=== PATIENT | female | born 1975 | race Native Hawaiian/Other Pacific Islander ===

== ENCOUNTER 2019-02-12 23:54 | Inpatient (IN) | payer BC, OTHER ==
[~2019-02-12] VITALS: Ht 154.9 cm; Wt 68.2 kg
[2019-02-13 00:48] LABS: CLARITY,URINE SLIGHTLY CLOUDY (Clear); COLOR,URINE STRAW (Yellow); GLUCOSE, URINE >=1000 mg/dl (Neg); KETONES,URINE TRACE mg/dl (Neg); LEUKOCYTE ESTERASE ,URINE NEGATIVE (Neg); NITRITES, URINE NEGATIVE (Neg); OCCULT BLOOD,URINE NEGATIVE (Neg); PH,URINE 6.5 (4.8-8.0); PROTEIN,URINE 30 mg/dl (Neg); UROBILINOGEN,URINE 0.2 E.U/dL (0.2-1.0)
[2019-02-13 00:51] LABS: UA COLLECTION TYPE CLN CATCH MIDSTREAM
[2019-02-13 01:00] LABS: URINE AMPHETAMINE SCREEN NEGATIVE (Neg); URINE BARBITUATE SCREEN NEGATIVE (Neg); URINE BENZODIAZEPINES SCREEN NEGATIVE (Neg); URINE CANNABINOID SCREEN NEGATIVE (Neg); URINE COCAINE SCREEN NEGATIVE (Neg); URINE METHADONE SCREEN NEGATIVE (Neg); URINE OPIATE SCREEN NEGATIVE (Neg); URINE PHENCYCLIDINE SCREEN NEGATIVE (Neg)
[2019-02-13 01:09] LABS: SQUAMOUS EPITHELIAL CELL,UR MODERATE /LPF (FEW)
[2019-02-13 01:10] LABS: BACTERIA,URINE FEW /HPF (Neg); WBC CLUMPS,URINE MANY /HPF (NEGATIVE); WBC,URINE 20-30 /HPF (0-4)
[2019-02-13 01:11] LABS: RBC,URINE 0-2 /HPF (0-2)
[2019-02-13 01:21] LABS: BASOPHILS # (AUTO) 0.1 X10'3 (0-0.2); BASOPHILS % (AUTO) 0.9 % (0-1); EOSINOPHILS # (AUTO) 0.1 X10'3 (0-0.9); EOSINOPHILS % (AUTO) 1.8 % (0-6); HEMATOCRIT 42.6 % (35.0-45.0); HEMOGLOBIN 14.5 g/dl (12.0-16.0); LYMPHOCYTES # (AUTO) 1.8 X10'3 (1.1-4.8); LYMPHOCYTES % (AUTO) 29.9 % (21-51); MEAN CORPUSCULAR HEMOGLOBIN 30.7 PG (27.0-31.0); MEAN CORPUSCULAR HGB CONC 34.1 g/dL (33.0-36.5); MEAN CORPUSCULAR VOLUME 89.9 FL (78-98); MEAN PLATELET VOLUME 7.6 FL (7.4-10.4); MONOCYTES # (AUTO) 0.5 X10'3 (0-0.9); MONOCYTES % (AUTO) 8.1 % (2-12); NEUTROPHILS # (AUTO) 3.6 X10'3 (1.8-7.7); NEUTROPHILS % (AUTO) 59.3 % (42-75); PLATELET COUNT 304 X10'3 (140-440); RED BLOOD COUNT 4.74 X10'6 (4.20-5.60); RED CELL DISTRIBUTION WIDTH 12.9 % (11.5-14.5)
--- NOTE | 2019-02-13 01:25 | NUR ---
pt up to the BR per w/c and her is helping her.
[2019-02-13 01:35] LABS: INR 0.9 INR; PARTIAL THROMBOPLASTIN TIME 24 SECONDS (22-32); PROTHROMBIN TIME 9.1 SECONDS (9.0-12.0)
[2019-02-13 01:36] LABS: ALANINE AMINOTRANSFERASE 16 U/L (12-78); ALBUMIN 3.6 G/DL (3.4-5.0); ALBUMIN/GLOBULIN RATIO 0.8 (1.1-1.5); ALKALINE PHOSPHATASE 71 IU/L (46-116); ANION GAP 11 (8-16); ASPARTATE AMINO TRANSFERASE 10 U/L (10-37); BILIRUBIN,TOTAL 0.4 MG/DL (0.1-1.0); BLOOD UREA NITROGEN 11 MG/DL (7-18); BUN/CREATININE RATIO 15.5 (6.6-38.0); CALCIUM 9.1 MG/DL (8.5-10.1); CHLORIDE 98 MMOL/L (99-107); CREATINE KINASE 79 U/L (26-192); CREATININE 0.71 MG/DL (0.40-0.90); ETHANOL < 0.010 GM/DL (0.0-0.010); GLUCOSE 403 MG/DL (70-104); MAGNESIUM 1.7 MG/DL (1.5-2.4); POTASSIUM 3.8 MMOL/L (3.5-5.1); SODIUM 134 MMOL/L (135-145); TOTAL PROTEIN 7.9 G/DL (6.4-8.2); eGFR 89 ML/MIN
[2019-02-13] MEDS ORDERED: insulin regular, human 10 units/0.1 ml syringe IV ONE (01:50)
[2019-02-13] MEDS ORDERED: labetalol 20mg/4ml (5mg/ml) syringe IV PRN (02:00)
[2019-02-13] MEDS ORDERED: magnesium Cl slow-release 64mg tablet PO PRN (03:45)
[2019-02-13] MEDS ORDERED: acetaminophen 325mg tablet PO PRN ×2 (03:45)
[2019-02-13] MEDS ORDERED: mag hydrox/Alum hydrox/simeth 30ml oral suspension PO PRN (03:45)
[2019-02-13] MEDS ORDERED: magnesium 2GM in 50ml NS 50 ML IV PRN (03:45)
[2019-02-13] MEDS ORDERED: potassium Cl 40MEQ/NS 500ml 500 ML IV PRN ×2 (03:45)
[2019-02-13] MEDS ORDERED: NO HOME MEDS (03:45)
[2019-02-13] MEDS ORDERED: magnesium 4gm in 100ml NS 100 ML IV PRN (03:45)
[2019-02-13] MEDS ORDERED: potassium Cl 20 mEq SR tablet PO PRN ×2 (03:45)
[2019-02-13] MEDS ORDERED: magnesium hydroxide 30ml (MOM) UD suspension PO PRN (03:45)
[2019-02-13] MEDS ORDERED: ondansetron/PF 4mg/2ml inj IV PRN (03:45)
[2019-02-13] MEDS ORDERED: dextrose 50%-water 50ml dispensing syringe IV PRN ×2 (03:50)
[2019-02-13] MEDS ORDERED: glucagon, human recombinant 1mg kit SUBCUT PRN (03:50)
[2019-02-13] MEDS ORDERED: MESSAGE TO PHARMACY PO ONE (03:50)
[2019-02-13] MEDS ORDERED: dextrose ORAL solution 15 GM/59 ML bottle PO PRN ×2 (03:50)
[2019-02-13] MEDS ORDERED: acetaminophen 325mg tablet PO ONE (04:00)
[2019-02-13 04:14] LABS: HEMOGLOBIN A1C 11.1 % (4.5-6.2)
--- NOTE | 2019-02-13 07:30 | NUR ---
Received patient report from ER nurse.
[2019-02-13 08:00] VITALS: BP 150/73
[2019-02-13] MEDS ORDERED: K and/or MAG REPLACEMENT MC SCH (08:00)
[2019-02-13] MEDS ORDERED: enoxaparin 40mg/0.4ml syringe SQ SCH (08:00)
[2019-02-13] MEDS ORDERED: levoFLOXACIN-Levaquin 500mg/D5 100 ML IV SCH (08:05)
[2019-02-13 10:00] VITALS: BP 162/98
[2019-02-13] MEDS: insulin Lispro (HumaLOG) vial - multi-dose SQ SCH ×2 (11:18→15:59)
[2019-02-13] MEDS ORDERED: aspirin 325mg tablet, delayed-release (Ecotrin) PO SCH (13:05)
[2019-02-13 14:00] VITALS: BP 176/93
[2019-02-13] MEDS ORDERED: LORazepam 2 mg/ml vial IV PRN (15:00)
[2019-02-13] MEDS ORDERED: levetiracetam 250mg tablet PO SCH (15:00)
--- NOTE | 2019-02-13 17:29 | NUR ---
Patient transferred via ambulance to [facility] at 17:20. Patient report called to Ganesh CABALLERO. All belongings sent with patient
[2019-02-13] MEDS ORDERED: atorvastatin 20mg tablet PO SCH (20:00)
[2019-02-13] MEDS ORDERED: lactobacillus rhamnosus 10,000 MMU CELLS/CAPSULE PO SCH (20:00)
[2019-02-13] MEDS ORDERED: insulin glargine (Lantus) pen - multi-dose SQ SCH (21:00)
== END 2019-02-13 17:25 | disposition short-term general hospital (02) | DRG 65 ==
LOC: ER 23:54 → ED HOLD 02-13 03:42 → EDBEDREQ 02-13 06:57 → ORTHO 4S 02-13 07:30
PROVIDERS: ADMIT Hospitalist; ATTEND Internal Medicine
DX: I63.9 Cerebral infarction, unspecified (principal); G40.89 Other seizures; E11.65 Type 2 diabetes mellitus with hyperglycemia; I10 Essential (primary) hypertension; I77.6 Arteritis, unspecified; K59.00 Constipation, unspecified; Z79.82 Long term (current) use of aspirin; Z79.899 Other long term (current) drug therapy; Z88.0 Allergy status to penicillin
CPT/HCPCS: 36415; 70450; 70544; 70551; 80053; 80305; 80320; 81001; 82550; 82948; 83036; 83735; 85025; 85610; 85651; 85730; 86038; 86140; 87070; 87088; 93306; 93880; G0378; J1650; J1815; J1956; J3490